=== PATIENT | male | born 1955 | race African-American/Black ===

== ENCOUNTER 2018-02-08 17:25 | Emergency (ER) | payer SELFPAY ==
[~2018-02-08] VITALS: Ht 177.8 cm; Wt 76.0 kg
[2018-02-09] MEDS ORDERED: OXYCODONE HCL 5MG TABLET PO ONE (00:45)
[2018-02-09] MEDS ORDERED: KETOROLAC 60MG/2ML VIAL IM ONE (05:00)
[2018-02-09 05:29] VITALS: BP 142/89
== END 2018-02-09 06:03 | disposition home or self-care (01) ==
LOC: ER 20:30
DX: S90.512A Abrasion, left ankle, initial encounter (principal); S90.511A Abrasion, right ankle, initial encounter; M79.1 Myalgia; I10 Essential (primary) hypertension; R45.1 Restlessness and agitation; V03.90XA Pedestrian on foot injured in collision with car, pick-up truck or van, unspecified whether traffic or nontraffic accident, initial encounter; Y93.89 Activity, other specified; Y92.89 Other specified places as the place of occurrence of the external cause; Y99.8 Other external cause status
CPT/HCPCS: 96372; 99283; J1885; Z7610